=== PATIENT | male | born 1975 | race Caucasian/White ===

== ENCOUNTER 2018-02-13 12:19 | Emergency (ER) | payer BC ==
[~2018-02-13] VITALS: Ht 180.3 cm; Wt 82.0 kg
[~2018-02-13 12:19] MED LIST: ALEVE220 M2 PO; ASACOL HD800 MG PO; ASTELIN137 MCG/0. BOTH NARES
[2018-02-13 13:08] LABS: BASOPHIL (%) 0.6 % (0-1); BASOPHIL COUNT 0.1 K/uL (0-0.1); EOSINOPHIL (%) 0.7 % (0-5); EOSINOPHIL COUNT 0.1 K/uL (0-0.3); IMMATURE GRANULOCYTE (%) 1.2 % (0.0-0.7); LYMPHOCYTE (%) 12.5 % (15-42); LYMPHOCYTE COUNT 1.6 K/uL (1.0-2.8); MCH 31.4 PG (29.0-34.0); MCHC 35.1 G/DL (30.0-36.0); MCV 89.4 FL (86-99); MONOCYTE COUNT 1.4 K/uL (0-0.8); NEUTROPHIL COUNT 9.4 K/uL (1.8-6.4); PLATELET COUNT 367 K/uL (156-360); RBC DIS.WIDTH-CV 11.9 % (11.8-14.6); RBC DIS.WIDTH-SD 38.5 % (39-53); RED BLOOD COUNT 4.14 M/uL (4.00-5.50); WHITE BLOOD COUNT 12.8 K/uL (4.1-10.2)
[2018-02-13 13:17] LABS: ALBUMIN 3.5 g/dL (3.2-4.8); CHLORIDE 99 mEq/L (99-109); INTER. NORMALIZED RATIO 1.4; POTASSIUM 4.1 mEq/L (3.7-5.4); SODIUM 136 mEq/L (136-147)
[2018-02-13 13:20] LABS: GLUCOSE 115 mg/dL (70-99); PTT 28.2 SEC (25-37)
[2018-02-13 13:22] LABS: TOTAL BILIRUBIN 0.7 mg/dL (0.0-1.0)
[2018-02-13 13:23] LABS: ALKALINE PHOSPHATASE 115 IU/L (3-129)
[2018-02-13 13:24] LABS: CREATININE 0.9 mg/dL (0.6-1.3); GFR ESTIMATE (CALCULATED) > 59 mL/min/ (58.99-99999)
[2018-02-13 13:25] LABS: AST (GOT) 43 IU/L (2-34); UREA NITROGEN (BUN) 7 mg/dL (9-23)
[2018-02-13 13:26] LABS: ALT (GPT) 64 IU/L (3-49)
[2018-02-13 14:06] LABS: APPEARANCE CLEAR ((CLEAR)); BILIRUBIN NEGATIVE; BLOOD MODERATE; COLOR YELLOW ((YELLOW)); GLUCOSE (STRIP) NEGATIVE; KETONES NEGATIVE; LEUKOCYTES NEGATIVE; NITRITE NEGATIVE; PROTEIN (STRIP) NEGATIVE; UROBILINOGEN 0.2 MG/DL (0.2-1.0)
[2018-02-13 14:27] LABS: BACTERIA NONE SEEN /HPF; EPITHELIAL CELLS NONE SEEN /HPF; MUCUS TRACE /LPF; RED BLOOD CELLS 0-5 /HPF (0-5); UCUL ADDED? NO; WHITE BLOOD CELLS 0-5 /HPF (0-5)
[2018-02-13 15:10] LABS: C DIFF TOXIN NEGATIVE (NEGATIVE)
[2018-02-13] MEDS ORDERED: COLACE100 MG PO (18:53)
[2018-02-13] MEDS ORDERED: RECTASMOOTHE30 GM TP (18:53)
[2018-02-13 19:16] VITALS: BP 115/82
== END 2018-02-13 19:34 | disposition home or self-care (01) ==
LOC: EME 12:19
PROVIDERS: Emergency Medicine
DX: K51.90 Ulcerative colitis, unspecified, without complications (principal); E86.0 Dehydration; K64.4 Residual hemorrhoidal skin tags
CPT/HCPCS: 71045; 74177; 80053; 81003; 83735; 85025; 85610; 85730; 87493; 93005; 99281; 99285; J7040

== ENCOUNTER 2018-02-27 12:53 | Inpatient (IN) | payer BC ==
[~2018-02-27] VITALS: Ht 180.3 cm; Wt 76.4 kg
[~2018-02-27 12:53] MED LIST changes: +COLACE100 MG PO; +RECTASMOOTHE30 GM TP
[2018-02-27 13:10] VITALS: BP 125/78
[2018-02-27] MEDS ORDERED: IMODIUM A-D2 M2 PO (13:44)
[2018-02-27] MEDS ORDERED: FLAGYL500 MG PO (13:45)
[2018-02-27] MEDS ORDERED: APRISO0.375 GM PO (13:45)
[2018-02-27] MEDS ORDERED: AUGMENTIN875 MG PO (13:46)
[2018-02-27] MEDS ORDERED: PREDNISONE20 MG PO (13:47)
[2018-02-27] MEDS ORDERED: QUESTRAN PACKET4 GM PO (13:48)
[2018-02-27] MEDS ORDERED: FLORASTOR250 MG PO (13:49)
[2018-02-27 23:31] VITALS: BP 114/58
[2018-02-28 05:42] LABS: BASOPHIL (%) 0.2 % (0-1); EOSINOPHIL (%) 0 % (0-5); HEMATOCRIT 31.4 % (38.0-50.0); LYMPHOCYTE (%) 16.4 % (15-42); LYMPHOCYTE COUNT 0.8 K/uL (1.0-2.8); MCH 30.4 PG (29.0-34.0); MCHC 32.8 G/DL (30.0-36.0); MCV 92.6 FL (86-99); MONOCYTE (%) 6.5 % (3-12); MONOCYTE COUNT 0.3 K/uL (0-0.8); NEUTROPHIL (%) 75.9 % (45-76); NEUTROPHIL COUNT 3.8 K/uL (1.8-6.4); RBC DIS.WIDTH-CV 13.2 % (11.8-14.6); RBC DIS.WIDTH-SD 44.2 % (39-53)
[2018-02-28 05:46] LABS: HEMOGLOBIN 10.3 G/DL (12.5-16.6); PLATELET COUNT 471 K/uL (156-360); RED BLOOD COUNT 3.39 M/uL (4.00-5.50)
[2018-02-28 06:15] LABS: CHLORIDE 103 MEQ/L (99-109); CREATININE 0.8 MG/DL (0.6-1.3); GFR ESTIMATE (CALCULATED) > 59 mL/min/ (58.99-99999); POTASSIUM 5.2 MEQ/L (3.7-5.4); SODIUM 136 MEQ/L (136-147); UREA NITROGEN (BUN) 8 mg/dL (9-23)
[2018-02-28 06:17] LABS: GLUCOSE 216 mg/dL (70-99)
[2018-02-28 07:24] VITALS: BP 116/71
[2018-02-28 15:40] VITALS: BP 139/81
[2018-03-01 00:23] VITALS: BP 117/69
[2018-03-01 07:08] VITALS: BP 136/78
[2018-03-01 15:20] VITALS: BP 137/76
[2018-03-01 23:54] VITALS: BP 106/55
[2018-03-02 07:24] VITALS: BP 129/84
[2018-03-02 09:37] LABS: HEMATOCRIT 31.1 % (38.0-50.0); HEMOGLOBIN 10.3 G/DL (12.5-16.6); MCH 30.9 PG (29.0-34.0); MCHC 33.1 G/DL (30.0-36.0); MCV 93.4 FL (86-99); PLATELET COUNT 397 K/uL (156-360); RBC DIS.WIDTH-CV 13.5 % (11.8-14.6); RBC DIS.WIDTH-SD 46.3 % (39-53); RED BLOOD COUNT 3.33 M/uL (4.00-5.50); WHITE BLOOD COUNT 5.7 K/uL (4.1-10.2)
[2018-03-02 10:10] LABS: CHLORIDE 109 MEQ/L (99-109); CREATININE 0.7 MG/DL (0.6-1.3); GFR ESTIMATE (CALCULATED) > 59 mL/min/ (58.99-99999); SODIUM 141 MEQ/L (136-147); UREA NITROGEN (BUN) 3 mg/dL (9-23)
[2018-03-02 10:14] LABS: GLUCOSE 88 mg/dL (70-99); POTASSIUM 2.7 MEQ/L (3.7-5.4)
[2018-03-02 15:35] VITALS: BP 119/65
[2018-03-02 15:49] LABS: STOOL OCCULT BLD 1ST SPECIMEN POSITIVE
[2018-03-02 15:52] VITALS: BP 148/89
[2018-03-02 16:36] LABS: CHLORIDE 101 MEQ/L (99-109); CREATININE 0.9 MG/DL (0.6-1.3); GFR ESTIMATE (CALCULATED) > 59 mL/min/ (58.99-99999); SODIUM 138 MEQ/L (136-147); UREA NITROGEN (BUN) 4 mg/dL (9-23)
[2018-03-02 16:58] LABS: GLUCOSE 204 mg/dL (70-99); POTASSIUM 3.6 MEQ/L (3.7-5.4)
[2018-03-02 19:46] VITALS: BP 131/76
[2018-03-02 23:49] VITALS: BP 125/82
[2018-03-03 07:36] VITALS: BP 120/67
[2018-03-03 16:28] VITALS: BP 127/72
[2018-03-04] VITALS: BP 115/71
[2018-03-04 07:23] LABS: BASOPHIL (%) 0.2 % (0-1); EOSINOPHIL (%) 0.7 % (0-5); EOSINOPHIL COUNT 0.1 K/uL (0-0.3); HEMATOCRIT 29.5 % (38.0-50.0); HEMOGLOBIN 9.7 G/DL (12.5-16.6); IMMATURE GRANULOCYTE (%) 0.7 % (0.0-0.7); LYMPHOCYTE (%) 26.7 % (15-42); LYMPHOCYTE COUNT 2.1 K/uL (1.0-2.8); MCH 30.9 PG (29.0-34.0); MCHC 32.9 G/DL (30.0-36.0); MCV 93.9 FL (86-99); MONOCYTE (%) 9.5 % (3-12); MONOCYTE COUNT 0.8 K/uL (0-0.8); NEUTROPHIL (%) 62.2 % (45-76); PLATELET COUNT 376 K/uL (156-360); RBC DIS.WIDTH-CV 13.8 % (11.8-14.6); RED BLOOD COUNT 3.14 M/uL (4.00-5.50)
[2018-03-04 07:45] LABS: CHLORIDE 106 MEQ/L (99-109); CREATININE 0.8 MG/DL (0.6-1.3); GFR ESTIMATE (CALCULATED) > 59 mL/min/ (58.99-99999); GLUCOSE 129 mg/dL (70-99); POTASSIUM 3.8 MEQ/L (3.7-5.4); SODIUM 141 MEQ/L (136-147); UREA NITROGEN (BUN) 7 mg/dL (9-23)
[2018-03-04 08:15] VITALS: BP 144/81
[2018-03-04 16:01] VITALS: BP 121/76
[2018-03-04 20:00] VITALS: BP 133/76
[2018-03-05] VITALS: BP 125/80
[2018-03-05 03:59] LABS: HEMATOCRIT 33.7 % (38.0-50.0); MCV 92.6 FL (86-99)
[2018-03-05 04:04] VITALS: BP 123/81
[2018-03-05 05:45] LABS: HEMOGLOBIN 11.7 G/DL (12.5-16.6)
[2018-03-05 07:52] VITALS: BP 149/91
[2018-03-05 09:55] LABS: HEMATOCRIT 35.5 % (38.0-50.0); HEMOGLOBIN 11.7 G/DL (12.5-16.6); MCH 30.2 PG (29.0-34.0); MCV 91.7 FL (86-99); PLATELET COUNT 398 K/uL (156-360); RBC DIS.WIDTH-SD 46.6 % (39-53); WHITE BLOOD COUNT 7.6 K/uL (4.1-10.2)
[2018-03-05 10:01] LABS: INTER. NORMALIZED RATIO 1.1
[2018-03-05 10:04] LABS: PTT 26.9 SEC (25-37)
[2018-03-05 10:13] LABS: RED BLOOD COUNT 3.87 M/uL (4.00-5.50)
[2018-03-05 10:49] LABS: ALBUMIN 3.2 G/DL (3.2-4.8); ALKALINE PHOSPHATASE 103 IU/L (3-129); ALT (GPT) 58 IU/L (3-49); AST (GOT) 49 IU/L (2-34); CHLORIDE 102 MEQ/L (99-109); CREATININE 0.8 MG/DL (0.6-1.3); GFR ESTIMATE (CALCULATED) > 59 mL/min/ (58.99-99999); GLUCOSE 150 mg/dL (70-99); POTASSIUM 3.3 MEQ/L (3.7-5.4); SODIUM 140 MEQ/L (136-147); TOTAL BILIRUBIN 0.4 MG/DL (0.0-1.0); TOTAL PROTEIN 5.8 G/DL (6.4-8.3); UREA NITROGEN (BUN) 12 mg/dL (9-23)
[2018-03-05 14:38] LABS: HEMOGLOBIN 11.6 G/DL (12.5-16.6); MCH 31.6 PG (29.0-34.0); MCHC 34.1 G/DL (30.0-36.0); MCV 92.6 FL (86-99); PLATELET COUNT 366 K/uL (156-360); RBC DIS.WIDTH-CV 14.2 % (11.8-14.6); RBC DIS.WIDTH-SD 47.6 % (39-53); RED BLOOD COUNT 3.67 M/uL (4.00-5.50); WHITE BLOOD COUNT 6.2 K/uL (4.1-10.2)
[2018-03-05 15:20] VITALS: BP 124/80
[2018-03-05] MEDS ORDERED: CIPROFLOXACIN500 M1 PO (15:38)
[2018-03-05] MEDS ORDERED: PREDNISONE20 MG PO (15:39)
[2018-03-05] MEDS ORDERED: DELZICOL400 M1 PO (16:41)
[2018-03-05] MEDS ORDERED: METRONIDAZOLE500 MG PO (16:42)
[2018-03-08 14:17] LABS: Neutrophil Cytoplasmic Aby Negative (Negative)
== END 2018-03-05 19:00 | disposition short-term general hospital (02) | DRG 387 ==
LOC: 5SOUTH 12:53
PROVIDERS: Hospitalist; Specialist
PROC: 0DBB8ZX Excision of Ileum, Via Natural or Artificial Opening Endoscopic, Diagnostic (ICD-10-PCS; principal; 2018-03-02)
PROC: 0DBL8ZX Excision of Transverse Colon, Via Natural or Artificial Opening Endoscopic, Diagnostic (ICD-10-PCS; principal; 2018-03-02)
PROC: 0DBN8ZX Excision of Sigmoid Colon, Via Natural or Artificial Opening Endoscopic, Diagnostic (ICD-10-PCS; principal; 2018-03-02)
PROC: 0DBM8ZX Excision of Descending Colon, Via Natural or Artificial Opening Endoscopic, Diagnostic (ICD-10-PCS; principal; 2018-03-02)
PROC: 0DBH8ZX Excision of Cecum, Via Natural or Artificial Opening Endoscopic, Diagnostic (ICD-10-PCS; principal; 2018-03-02)
PROC: 0DBP8ZX Excision of Rectum, Via Natural or Artificial Opening Endoscopic, Diagnostic (ICD-10-PCS; principal; 2018-03-02)
PROC: 0DBK8ZX Excision of Ascending Colon, Via Natural or Artificial Opening Endoscopic, Diagnostic (ICD-10-PCS; principal; 2018-03-02)
DX: K50.10 Crohn's disease of large intestine without complications (principal); K60.3 Anal fistula; E86.0 Dehydration; E87.6 Hypokalemia; K64.8 Other hemorrhoids; K21.9 Gastro-esophageal reflux disease without esophagitis; G89.29 Other chronic pain; Z86.010 Personal history of colon polyps; Z87.442 Personal history of urinary calculi
CPT/HCPCS: 36415; 72197; 76870; 80048; 80048 91; 80053; 81256 90; 82272; 82390; 82728; 83540; 84132 91; 84165; 84466; 85014; 85018; 85025; 85027; 85610; 85730; 86021 90; 86671 90; 86850; 86900; 86901; 87046; 87177; 87329; 87493; 87506; 88305; J0135; J0744; J2405; J2930; J3010; J3480; J7042; J7512; S0030